=== PATIENT | female | born 1960 | race Caucasian/White ===

== ENCOUNTER → 2020-10-06 15:00 | Outpatient (BNVA) | payer OTHER, MEDICARE, SELFPAY | PROVIDERS: Family Provider Family Medicine; PCP Family Medicine; Visit Provider Family Medicine | DX: M54.40 Lumbago with sciatica, unspecified side (principal); G89.29 Other chronic pain; M17.0 Bilateral primary osteoarthritis of knee; I10 Essential (primary) hypertension; A60.00 Herpesviral infection of urogenital system, unspecified; K59.00 Constipation, unspecified; R13.10 Dysphagia, unspecified; K22.2 Esophageal obstruction; I16.0 Hypertensive urgency; E78.2 Mixed hyperlipidemia; F33.1 Major depressive disorder, recurrent, moderate; A60.04 Herpesviral vulvovaginitis; K59.03 Drug induced constipation; R79.89 Other specified abnormal findings of blood chemistry; R13.19 Other dysphagia; Z76.89 Persons encountering health services in other specified circumstances | CPT/HCPCS: 80053; 80061 ==

== ENCOUNTER → 2020-10-19 08:19 | Outpatient (BNVA) | payer OTHER, SELFPAY | PROVIDERS: Family Provider Family Medicine; PCP Family Medicine; Referring Provider Family Medicine; Visit Provider Anesthesiology Pain Medicine | DX: M25.561 Pain in right knee (principal); M25.562 Pain in left knee; M47.816 Spondylosis without myelopathy or radiculopathy, lumbar region; M47.814 Spondylosis without myelopathy or radiculopathy, thoracic region; M62.830 Muscle spasm of back | CPT/HCPCS: 99205 ==

== ENCOUNTER 2020-10-19 09:53 | Outpatient (CLI) | payer OTHER, SELFPAY ==
--- NOTE | 2020-10-19 10:04 | XR_ITS ---
WS: [id number] LUMBAR SPINE TECHNIQUE: 3 views of the lumbar spine CLINICAL INFORMATION: M54.40 - Lumbago with sciatica, unspecified side COMPARISON: None. FINDINGS:: Residual barium in the colon obscures the pelvis in the AP view and lower lumbar spine on the lateral view. Five [id number] lumbar vertebral bodies. Mild lumbar curve. Osteopenia. No acute appearing compr ession fractures. Disc space narrowing worse at L3-L4 L4-L5 and L5-S1. L5 appears partially sacralize d. Grade 1 anterolisthesis L3 on L4 measuring 2 mm. XR/XR lumbar spine 2-3V* [id number] IMPRESSION: 1. Osteopenia with mild lumbar curve. 2. L5 appears partially sacralized. 3. 2 mm anterolisthesis L3 on L4. 4. Disc space narrowing worse at L3-L4 L4-L5 and L5-S1. 5. No acute appearing compression fractures. 6. Moderate facet arthropathy L5-S1.
--- NOTE | 2020-10-19 10:04 | XR_ITS ---
WS: [id number] THORACIC SPINE TECHNIQUE: 3 views of the thoracic spine CLINICAL INFORMATION: M54.40 - Lumbago with sciatica, unspecified side COMPARISON: April 09, 2018 FINDINGS: Osteopenia. Moderate thoracic kyphosis. Chronic appearing anterior wedging in the mid thoracic spine has progressed since 2018. No definite acute compression fractures. Mild disc space narrowing in the mid thoracic spine is also progressed compared to previous. Mild anterior hypertrophic changes. XR/XR thoracic spine 3V* [id number] IMPRESSION: 1. Moderate thoracic kyphosis with chronic appearing anterior wedging mid thor acic spine has progressed since 2018. 2. Progressed disc space narrowing in the mid thoracic spine. 3. Osteopenia. 4. Findings can be further evaluated with MRI or CT if concern for acute compr ession.
== END 2020-10-19 09:54 | disposition home or self-care (01) ==
LOC: RADWPI 09:57
PROVIDERS: PCP Family Medicine; Visit Provider Family Medicine
DX: M54.40 Lumbago with sciatica, unspecified side (principal); M40.294 Other kyphosis, thoracic region; M85.88 Other specified disorders of bone density and structure, other site; M47.817 Spondylosis without myelopathy or radiculopathy, lumbosacral region
CPT/HCPCS: 72072; 72100

== ENCOUNTER → 2020-11-08 14:04 | Outpatient (BNVA) | payer OTHER, SELFPAY | PROVIDERS: PCP Family Medicine; Visit Provider Anesthesiology Pain Medicine | DX: M79.18 Myalgia, other site (principal); M47.816 Spondylosis without myelopathy or radiculopathy, lumbar region; M54.14 Radiculopathy, thoracic region; M47.814 Spondylosis without myelopathy or radiculopathy, thoracic region; M25.561 Pain in right knee; M25.562 Pain in left knee | CPT/HCPCS: 20553; 99215; J1030; J3490 ==

== ENCOUNTER → 2020-11-25 09:23 | Outpatient (BNVA) | payer OTHER, SELFPAY | PROVIDERS: PCP Family Medicine; Visit Provider Anesthesiology Pain Medicine | DX: M54.42 Lumbago with sciatica, left side (principal); M54.6 Pain in thoracic spine; M47.816 Spondylosis without myelopathy or radiculopathy, lumbar region; M54.14 Radiculopathy, thoracic region; M25.569 Pain in unspecified knee; M62.830 Muscle spasm of back; M47.814 Spondylosis without myelopathy or radiculopathy, thoracic region; Z79.891 Long term (current) use of opiate analgesic | CPT/HCPCS: 99214 ==

== ENCOUNTER → 2020-12-23 10:42 | Outpatient (BNVA) | payer OTHER, SELFPAY | PROVIDERS: PCP Family Medicine; Visit Provider Anesthesiology Pain Medicine | DX: M47.816 Spondylosis without myelopathy or radiculopathy, lumbar region (principal); M54.14 Radiculopathy, thoracic region; M47.814 Spondylosis without myelopathy or radiculopathy, thoracic region; M25.561 Pain in right knee; M25.562 Pain in left knee; M62.830 Muscle spasm of back; Z79.891 Long term (current) use of opiate analgesic | CPT/HCPCS: 99214 ==

== ENCOUNTER → 2021-01-03 11:45 | Outpatient (BNVA) | payer MEDICARE, SELFPAY | PROVIDERS: PCP Family Medicine; Referring Provider Family Medicine; Visit Provider Orthopaedic Surgery | DX: M25.561 Pain in right knee (principal); M25.562 Pain in left knee | CPT/HCPCS: 73560; 73565 ==

== ENCOUNTER → 2021-01-20 11:29 | Outpatient (BNVA) | payer MEDICARE, SELFPAY | PROVIDERS: PCP Family Medicine; Visit Provider Anesthesiology Pain Medicine | DX: M47.814 Spondylosis without myelopathy or radiculopathy, thoracic region (principal); M47.816 Spondylosis without myelopathy or radiculopathy, lumbar region; M54.14 Radiculopathy, thoracic region; M54.6 Pain in thoracic spine; M25.561 Pain in right knee; M25.562 Pain in left knee; M62.830 Muscle spasm of back; Z79.891 Long term (current) use of opiate analgesic | CPT/HCPCS: 99214 ==

== ENCOUNTER → 2021-02-07 08:51 | Outpatient (BNVA) | payer MEDICARE, SELFPAY | PROVIDERS: PCP Family Medicine; Visit Provider Orthopaedic Surgery | DX: Z01.812 Encounter for preprocedural laboratory examination (principal); Z20.822 Contact with and (suspected) exposure to COVID-19 | CPT/HCPCS: 87635 ==

== ENCOUNTER 2021-02-13 13:34 | Observation (INO) | payer MEDICARE, SELFPAY ==
[2021-01-30 08:45] VITALS: BMI 27.1
--- NOTE | 2021-01-30 09:30 | ANES.PREANE2 ---
Pre-Anesthetic Assessment Pre-Anesthetic Assessment: Height/Weight: Height 1.55 m Weight 65.317 kg Preop Diagnosis: Osteoarthritis Left knee Proposed Procedure: Operation Date: 02/13/21 09:35 Proposed Procedures p Total Knee Arthroplasty 48925 M17.12(Left) - Sal Reinoso MD Was Beta Lorin taken within 24 hours: N/A Was Clonidine taken within 24 hours: N/A Social: Social History: No alcohol and No tobacco Exam: Pre-Anes Outpt Exam: alert, oriented x 3, clear to auscultation bilaterally and regular rate & rhythm Airway: Submandibular: WNL Cervical ROM: WNL MP: 2 Dentition: Full CV/HEM: CV/HEM: HTN Musc/skel: Musc/skel: Lower Back Pain and OA/DJD Neuropsych: Neuropsych: Depression Anesthetic Plan: ASA status: 3 Anesthesia: Regional (specify below) (SAB/adductor blk) Risk of > 500 ml blood loss (7ml/kg in children): No PFSH Anesthesia PFSH: Medical History Chronic bilateral low back pain with sciatica Constipation Herpes genitalis Hyperlipemia Hypertension Major depression Surgical History H/O tubal ligation Family History Mother Chronic kidney disease (CKD) Stroke Father Stroke COPD (chronic obstructive pulmonary disease) Social History Smoking and tobacco status: former smoker Alcohol intake: current Alcohol intake frequency: 0-2 Drinks per Day Alcohol type: beer History of recent travel: No Data Anesthesia Cardiac Studies: No Data to Display
[2021-02-13] VITALS (19 sets, daily range): BP systolic 104–134; BP diastolic 62–90; PULSE 69–95; RESP 16–18; TEMP 36.2–37; O2SAT 92–100
[2021-02-13] MEDS: sodium chloride 0.9% 1,000 ML 30 ML IV (08:24)
[2021-02-13] MEDS: acetaminophen 500 mg Tablet 1000 MG PO ×3 (08:24→20:56)
[2021-02-13] MEDS: oxyCODONE 20 mg ER (12 HR) Tablet PO (08:25)
[2021-02-13] MEDS: CELEcoxib 200 mg Capsule 400 MG PO (08:25)
[2021-02-13] MEDS: gabapentin 300 mg Capsule PO ×2 (08:26→18:20)
--- NOTE | 2021-02-13 09:17 | P.ANESUD_ITS ---
Pre-Anesthetic Update Pre-Anesthetic Assessment: Date of Surgery/Procedure: 02/13/21 Preop Geri gnosis: Osteoarthritis Left knee Proposed Procedure: Operation Date: 02/13/21 09:35 Proposed Procedures p Total Knee Arthroplasty 06340 M17.12(Left) - Sal Reinoso MD Any changes to Pre-Anesthetic Assessment?: No Last Intake: Intake Last Liquid Date 02/12/21 Last Liquid Time 23:30 Last Solid Date 02/12/21 Last Solid Time 23:30 Vitals: Temperature 97.6 F 02/13/21 08:04 Temperature Source Temporal Artery S can 02/13/21 08:04 Pulse Rate 69 02/13/21 08:04 Respiratory Rate 18 02/13/21 08:25 Respiratory Effort 02/13/21 08:25 Respiratory Depth Normal 02/13/21 08:25 Respiratory Patter n 02/13/21 08:25 Blood Pressure 134/90 02/13/21 08:04 Blood Pressure Daniela n 104 02/13/21 08:04 Pulse Oximetry 100 02/13/21 08:25 Oxygen Delivery Me thod 02/13/21 08:04 Exam: Pre-Anes Outpt Exam: alert, oriented x 3, clear to auscultation bilaterally and regular rate & rhythm Cardiac Studies: No Data to Display
--- NOTE | 2021-02-13 10:14 | P.HP_ITS ---
Same Day Surgery H&P Indication for Procedure/HPI DATE OF PROCEDURE: February 13, 2021 CHIEF COMPLAINT/INDICATIONFOR SURGICAL PROCEDURE: Osteoarthritis right knee here for left total knee arthroplasty PREOP DIAGNOSIS: Osteoarthritis Left knee PLANNED PROCEDRUE: Operation Date: 02/13/21 09:35 Proposed Procedures p Total Knee Arthroplasty 49033 M17.12(Left) - Sal Reinoso MD Medications/Allergies* Home Medications Medication Instructions Recorded Confirmed Type milk thistle seed extract 175 mg 175 mg PO ONCE cap 01/20/21 02/13/21 History capsule Allergies/Adverse Reactions Allergy/AdvReac Type Severity Reaction Status Date / Time Sulfa (Sulfonamide Allergy hives Verified 02/09/21 08:14 Antibiotics) Current Medications: Generic Name Dose Route Start Last Admin Trade Name Freq PRN Reason Stop Dose Admin Sodium Chloride 1,000 mls @ 30 mls/hr 02/13/21 08:00 02/13/21 08:24 Sodium Chloride 0.9% IV 02/14/21 07:59 30 mls/hr .Q24H [facility] Administration Pertinent History/Comorbid Conditions* Medical History (Updated 11/08/20 @ 14:51 by Macario Berumen MD) Chronic bilateral low back pain with sciatica Constipation Herpes genitalis Hyperlipemia Hypertension Major depression Surgical History (Updated 10/06/20 @ 11:45 by Rachel Alonso MD) H/O tubal ligation Family History (Updated 10/19/20 @ 08:58 by Melissa Montoya LPN) Mother Chronic kidney disease (CKD) Mother COPD (chronic obstructive pulmonary disease) Father Stroke Mother Father Social History Smoking and tobacco status: former smoker Alcohol intake: current Alcohol intake frequency: 0-2 Drinks per Day Alcohol type: beer History of recent travel: No Pertinent Exam Findings alert, oriented x 3, clear to auscultation bilaterally, regular rate & rhythm and operative site marked Recommendations Surgery/Procedure today Coding Level of Care Code Acute 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
[2021-02-13] MEDS: EPINEPHrine 1 mg/mL INJ (11:35)
[2021-02-13] MEDS: tranexamic acid 1,000 mg/10mL SDV 1000 MG IRRIGATION (11:35)
[2021-02-13] MEDS: ketorolac 30 mg/mL INJ (11:36)
--- NOTE | 2021-02-13 12:39 | PM.OP ---
Operative Report Date of procedure: February 13, 2021 Pre-op Diagnosis: Osteoarthritis Left knee Post-op diagnosis: same Post-op Findings: Same Procedure Done: Left total knee arthroplasty Pathology: none sent Surgeon: Sal Reinoso Anesthesia: Nerve Block (Spinal, abductor canal block) Estimated blood loss (mL): 200 Complications: None Findings: Patient had eburnated bone over the medial femoral condyle and medial tibial plateau. She had no significant chondromalacia in the lateral or patellofemoral Condition: stable Disposition: PACU Procedure: The patient was taken to the operating room. Patient was given 1 g of tranexamic acid . The above anesthesia provided by the anesthesia service. A timeout was performed. The patient was prepped and draped in the usual fashion with the lower extremity exposed. A anterior incision was made, midline, from a point proximal to the patella to the distal tibial tubercle. The knee was entered through a medial parapatellar approach. The patella could be displaced laterally and the knee flexed. The patellar fat pad was resected to provide better visibility. Retractors were placed medially and laterally adjacent to the tibial plateau. The femoral canal was drilled in line with the longitudinal axis of the femur. Intramedullary femoral guide for used to make a distal femoral cut in 5 degrees of valgus, resecting 8 mm from the more prominent condyle. Next the extra medullary tibial guide was placed in alignment with the longitudinal axis of the tibia. The cutting guides were set to remove just over 9 mm from the high tibial plateau. The proximal tibia was then cut. The femoral measuring guide was then placed over the distal femur. Rotation was verified checking the relationship of the guide to the condyle and the trochlear groove. The femur was measured and cut for the desired femoral component. The desired tibial baseplate was then chosen. A trial reduction with the femur tibial baseplate and polyethylene was done, assuring that the knee was stable throughout full motion. Ligament balancing involve nothing more than a release of the deep medial collateral ligament.The tibia was prepared for the tibial baseplate. The patella revealed minimal wear and tracked well with the trial components. Decision was made to not resurface the patella. All surfaces were cleaned with pulsatile lavage. The femur and tibia were then press-fit into place. The posterior capsule and collateral ligaments were then injected with a solution of 100 mL of 0.2% ropivacaine, 1 mL of a 1:1000 epinephrine solution, and 30 mg of Toradol. Final polyethylene component was then snapped into place into the tibia. 2 grams of tranexamic acid were applied to the wound. The tourniquet was deflated. The tranxanemic acid was left contact with the knee for 5 minutes before the knee was irrigated with saline. The extensor retinaculum was closed with a running 1 Stratafix.. The subcutaneous tissues were closed with 2-0 Vicryl and the skin was closed with a running 3-0 Stratafix. The wound was covered with a Dermabond Prinio dressing. It was covered with 4xrs and a compressive Tubigauae was applied. The patient was taken to recovery room in stable condition. [employer] total knee arthroplasty components were used includin) Size 2 Triathalon cruciate retaining femoral component 2) Size two Tritanium tibial component 3) Size 2/eleven mm thickness CR tibial bearing insert
--- NOTE | 2021-02-13 12:49 | XRR_ITS ---
PROCEDURE INFORMATION: Exam: XR Left Knee Exam date and time: 02/13/2021 1:00 PM Age: 60 years old Clinical indication: Device placement; Joint replacement hardware; Prior surgery; Surgery date: Post-operative (0-2 days); Surgery type: Left total knee arthroplasty TECHNIQUE: Imaging protocol: XR Left knee. Views: 1 or 2 views. COMPARISON: CR XR knees AP WB w BI lmt ORTH 01/03/2021 11:52 AM FINDINGS: Bones/joints: Postoperative changes associated with recent total knee arthroplasty. No evidence of hardware complication. No radiographic evidence of acute fracture or dislocation. Alignment anatomic. Moderate effusion with associated intra-articular gas, likely postsurgical in nature. Soft tissues: Soft tissue swelling and gas, consistent with recent surgery. XR/XR knee LT 1-2V [id number] IMPRESSION: Postoperative changes associated with recent total knee arthroplasty.
--- NOTE | 2021-02-13 12:50 | P.PCN_ITS ---
PACU note PACU note: VSS, Good respiratory effort, report to SHREDDING SPECIALIST Post-Anesthesia Exam: awake
--- NOTE | 2021-02-13 12:50 | PM.PACU ---
PACU note PACU note: VSS, Good respiratory effort, report to UG DESIGNER Post-Anesthesia Exam: awake
--- NOTE | 2021-02-13 13:04 | ANES.PROC ---
Anesthesia Procedures Procedure/Date: 02/13/21 Nerve Block ^: Nerve Block 1: Main Anesthesia: general anesthesia Time Out Performed: Yes Consent: requested by attending/covering physician, from patient, risks and benefits reviewed and patient agrees to proceed Nerve block location: adductor canal (left) Anesthesia monitors applied: pulse oximetry, EKG, BP cuff and oxygen Nerve block position: supine Anesthetic Used: ropivicaine 0.5% Amount of anesthesia used (mL): 20 Ultrasound used to: recognize landmarks Nerve Stimulator Used?: No Interscalene/Femoral BLK: 4 stimuplex 21 g needle used for position and inplane approach Injection: neg aspiration of heme Patient Tolerated Procedure: well Complications: none
[2021-02-13] MEDS: morphine 4 mg/mL SDV 1 mL 2 MG IVP ×3 (14:27→21:17)
[2021-02-13] MEDS: sodium chloride 0.9% 1,000 ML 100 ML IV (14:32)
[2021-02-13] MEDS: methocarbamol 500 mg Tablet PO ×2 (14:53→20:56)
--- NOTE | 2021-02-13 14:55 | ANE.PACU2 ---
Inpatient post-anesthesia follow up: Airway intact: Yes Vital signs: Temperature 97.3 F Pulse Rate 78 Respiratory Rate 16 Blood Pressure 104/68 Pulse Oximetry 97 Oxygen Delivery Me thod Nasal Cannula Oxygen Flow Rate 1 Fraction of Inspir ed Oxygen Hydration adequate: Yes Nausea and vomiting: No Pain level: 2 Mental status: Baseline
[2021-02-13] MEDS: sennosides-docusate Tablet 2 TAB PO (18:20)
[2021-02-13] MEDS: mupirocin oint 22 gm 1 APPLIC TOPICAL (18:20)
[2021-02-13] MEDS: calcium carbonate 500 mg Chew Tablet 1000 MG PO (20:56)
[2021-02-14 00:24] VITALS: BP 121/80; PULSE 68; RESP 18; TEMP 36.4; O2SAT 96
[2021-02-14] MEDS: sodium chloride 0.9% 1,000 ML 100 ML IV (01:49)
--- NOTE | 2021-02-14 02:36 | PC.NURSE ---
Patient was in pain I was checking her blood pressure prior to giving morphine and it was 72/45 did a manual and it was 80/54. I called Ortho instrumentation engineering technician who said to consult the hospitalist. Hospitalist said to give 500 bolus of NS. Will recheck BP after bolus.
[2021-02-14] MEDS: sodium chloride 0.9% 500 ML IV (03:15)
[2021-02-14 03:35] VITALS: BP 98/62; PULSE 59; RESP 16; TEMP 36.9; O2SAT 93
[2021-02-14] MEDS: acetaminophen 500 mg Tablet 1000 MG PO ×2 (06:15→13:37)
[2021-02-14 06:24] LABS: Hemoglobin 10.2 g/dL (11.5-15.3)
[2021-02-14] MEDS: morphine 4 mg/mL SDV 1 mL 2 MG IVP (06:30)
[2021-02-14] MEDS: amlodipine 10 mg Tablet PO (09:11)
[2021-02-14] MEDS: aspirin 325 mg EC Tablet PO (09:11)
[2021-02-14] MEDS: atorvastatin 40 mg Tablet PO (09:11)
[2021-02-14] MEDS: hydroCHLOROthiazide 25 mg Tablet PO (09:12)
[2021-02-14] MEDS: lisinopril 20 mg Tablet PO (09:12)
[2021-02-14] MEDS: gabapentin 300 mg Capsule PO (09:12)
[2021-02-14] MEDS: venlafaxine ER (24HR) 75 mg Capsule PO (09:13)
[2021-02-14] MEDS: mupirocin oint 22 gm 1 APPLIC TOPICAL (09:13)
[2021-02-14] MEDS: sennosides-docusate Tablet 2 TAB PO (09:13)
[2021-02-14] MEDS: methocarbamol 500 mg Tablet PO (09:13)
--- NOTE | 2021-02-14 09:32 | PC.CHAP ---
Pastoral Care Encounter/Spiritual Assessment Type of Contact [] Declined supervisor keymodule assembly visit [] Patient/Family/Request visit [] Outpatient visit [] Follow-up visit [] Physician referral [] Code/Alert [x] Routine visit [] Staff referral [] Actively dying [] Patient sleeping [] Family support [] [] Out of room [] Palliative care [] [] Receiving care in room [] Pre-surgical visit [] Trauma [] Long length of stay [] ICU visit [] Other: Relational/Emotional Strength [x] Patient feels connected with others/family/visitors/staff [] Distress [] Loneliness/isolation [] Abandonment Spirituality of Patient [] Person of [place] [] Attends Church of their [place] [] Believes in Prayer [] Reads Bible or Adventist materials [] There are Spiritual issues to be addressed Ski Instructor Interventions [] Prayer [] Active listening [] Non-anxious presence [] Spiritual/emotional support [] Crisis/trauma care [] Spiritual counseling [] Bereavement support [] Provided bereavement packet [] Provided Bible/devotional materials [] Provided toy/stuffed animal, coloring book to patient or family member [] Provided Communion [] Anointing/[place] [] Salvation [x] Completed spiritual assessment [] Other: Impact on Illness or Injury [] Angry [] Fearful [] Anxious [] Often cries [] Exhaustion [] Unable to work [] Unable to attend congregational [] Unable to walk/stand [] Unable to read [] Unable to drive [] Unable to eat/drink [] Unable to sleep [] Unable to be with family [] Patient intubated [] Other: Summary patient of another mar[place] Time spent with patient
[2021-02-14 11:24] VITALS: RESP 16; O2SAT 99
[2021-02-14] MEDS: oxyCODONE 5 mg IR Tab/Cap PO ×2 (11:24→15:44)
--- NOTE | 2021-02-14 13:09 | P.DS_ITS ---
Discharge Providers Date of Admission: 02/13/21 13:34 Date of Discharge: February 14, 2021 Attending Provider at Admission: Sal Reinoso MD Attending Provider at Discharge: Sal Reinoso MD Primary Care Provider: Rachel Alonso MD Diagnoses at Discharge Discharge Diagnosis (1) Status post left knee replacement: Status: Acute (2) Osteoarthritis of left knee: Status: Resolved Reason for Visit Reason for Visit: total knee Hospital Course Hospital Course Ms. Matson is a 60-year-old left total knee arthroplasty. She did well and by the first postoperative day her pain was under control. She is managed with aspirin and sequential compression dressings for DVT prophylaxis. She made excellent progress with therapy and by the first postoperative day was thought stable for discharge. Physical Exam Narrative: EXAM NARRATIVE: On the day of discharge his knee incision was clean. They had no drainage. There is minimal swelling in the thigh and knee and the calf. No distal neurovascular deficits were noted Urinary Catheter Management^: Rodriguez: Cath Placed During This Visit: yes, but has since been removed by the nurse Reason for Continuing Indwelling Catheter: Perioperative Use in Selected Surgeries Urinary Catheter Date of Insertion: 02/13/21 Urinary Catheter Time of Insertion: 10:45 Date Urinary Catheter Removed: 02/14/21 Time Urinary Catheter Discontinued: 06:44 Discharge Data Data Completed and Pending: Completed Studies During Hospitalization Category Date Time Status XR knee LT 1-2V 7 [id number] Routine Exams 02/13/21 12:49 Completed Labs from last 24 hours 02/14/21 05:20 Hgb 10.2 L Vitals: Last Vital Signs Temp 98.5 F 02/14/21 03:35 Pulse 59 L 02/14/21 03:35 Resp 16 02/14/21 11:24 BP 98/62 02/14/21 03:35 Pulse Ox 99 02/14/21 11:24 Discharge Plan Discharge Patient Disposition: Home Condition: Stable Prescriptions: New oxycodone 5 mg Tablet 5 mg PO Q4H PRN (Reason: Moderate Pain) 40 Days RF: 0 acetaminophen 500 mg Tablet 1,000 mg PO Q8H 1 Days Qty: 6 RF: 0 aspirin 325 mg Tablet,Delayed Release (Dr/Ec) 325 mg PO DAILY 30 Days RF: 0 gabapentin 300 mg Capsule 300 mg PO BID 7 Days Qty: 14 RF: 0 Continued milk thistle seed extract 175 mg capsule 175 mg PO ONCE RF: 0 acyclovir 5 % ointment 1 applic topical 6XD 7 Days Qty: 5 RF: 0 amlodipine 10 mg tablet 10 mg PO DAILY 90 Days Qty: 90 RF: 1 lisinopril-hydrochlorothiazide 20-25 mg tablet 1 tab PO DAILY 90 Days Qty: 90 RF: 1 atorvastatin 40 mg tablet 40 mg PO DAILY 90 Days Qty: 90 RF: 1 diclofenac sodium [Arthritis Pain (diclofenac)] 1 % gel 4 g topical QID Qty: 100 RF: 5 polyethylene glycol 3350 17 gram/dose powder 17 g PO DAILY PRN (Reason: constipation) Qty: 850 RF: 5 venlafaxine 75 mg capsule,extended release 24hr 75 mg PO DAILY 90 Days Qty: 90 RF: 0 methocarbamol 500 mg tablet 500 mg PO TID 30 Days Qty: 90 RF: 0 tizanidine 4 mg tablet See Rx Instructions .ROUTE .COMPLEX Qty: 30 RF: 0 mupirocin 2 % ointment 1 applic topical BID Qty: 22 RF: 0 Discontinued acetaminophen-codeine 300-30 mg tablet 1 tab PO QID PRN (Reason: pain) 30 Days Qty: 120 RF: 0 Discharge Orders: Discharge Order (Routine); Ordered 02/14/21 Ordered By: Sal Reinoso Other Ambulatory Orders: DME: Walker (Order) Location: None Selected Ordered By: Sal Reinoso Referrals: [facility] [Outside] Sal Reinoso MD [Physician] - 2 weeks Discharge Diet: Advance as tolerated Discharge Activity: Limit activity as instructed Patient Instructions: Opioid Safety Activity Restrictions/Additional Instructions: Okay to shower Keep Tubigauze sleeve in place for swelling. Okay to remove for hygiene. Apply FirstIce up to 20 min/hr for pain and swelling Take Neurontin twice a day for 7 days. Take Tylenol 500mg (1-2 tabs) as needed 3 times a day for mild pain take oxycodone for breakthrough pain. Exercises per physical therapy. May weight-bear as tolerated on total knee arthroplasty Discharge Attestations Time Spent in Discharge Care*: other Quality Metrics Clinical Quality Measures During this hospital stay, did patient experience: None Coding Level of Care Code Acute g [facility] note Diagnoses Status post left knee replacement Z96.652 Osteoarthritis of left knee M17.12
[2021-02-14 15:44] VITALS: RESP 22; O2SAT 99
[2021-02-14 15:49] VITALS: BP 110/76; PULSE 90; RESP 18; TEMP 36.6; O2SAT 99
== END 2021-02-14 15:50 | disposition home or self-care (01) ==
LOC: MEDSURG 13:34
PROVIDERS: Admitting Provider Orthopaedic Surgery; PCP Family Medicine; Visit Provider Orthopaedic Surgery
PROC: (CPT 27447; principal; 2021-02-13 09:15)
DX: M17.12 Unilateral primary osteoarthritis, left knee (principal); I10 Essential (primary) hypertension; F32.9 Major depressive disorder, single episode, unspecified; M19.90 Unspecified osteoarthritis, unspecified site; Z87.891 Personal history of nicotine dependence
CPT/HCPCS: 27447; 36415; 51702; 64447; 73560; 76942; 85018; 97110; 97116; 97161; 97165; 97530; C1776; G0378; J0171; J0690; J1580; J1885; J2250; J2270; J2704; J2795; J3010; J7030; J7040

== ENCOUNTER → 2021-03-02 10:12 | Outpatient (BNVA) | payer MEDICARE, SELFPAY | PROVIDERS: PCP Family Medicine; Visit Provider Anesthesiology Pain Medicine | DX: M47.814 Spondylosis without myelopathy or radiculopathy, thoracic region (principal); M47.816 Spondylosis without myelopathy or radiculopathy, lumbar region; M54.14 Radiculopathy, thoracic region; M25.561 Pain in right knee; M25.562 Pain in left knee; M62.830 Muscle spasm of back; Z79.891 Long term (current) use of opiate analgesic | CPT/HCPCS: 99214 ==

== ENCOUNTER 2021-03-07 06:00 | Outpatient (RCR) | payer MEDICARE, SELFPAY | END 2021-03-29 23:59 | disposition home or self-care (01) | LOC: MPT 06:00 | PROVIDERS: PCP Family Medicine; Referring Provider Orthopaedic Surgery; Visit Provider Orthopaedic Surgery | DX: Z47.1 Aftercare following joint replacement surgery (principal); Z96.652 Presence of left artificial knee joint | CPT/HCPCS: 97110; 97140; 97161; 97530 ==

== ENCOUNTER 2021-03-30 06:00 | Outpatient (RCR) | payer MEDICARE, SELFPAY | END 2021-04-29 23:59 | disposition home or self-care (01) | LOC: MPT 06:00 | PROVIDERS: PCP Family Medicine; Referring Provider Orthopaedic Surgery; Visit Provider Orthopaedic Surgery | DX: Z47.1 Aftercare following joint replacement surgery (principal); Z96.652 Presence of left artificial knee joint | CPT/HCPCS: 97110; 97116; 97140; 97530; 99214 ==

== ENCOUNTER → 2021-03-30 09:06 | Outpatient (BNVA) | payer MEDICARE, SELFPAY | PROVIDERS: PCP Family Medicine; Visit Provider Anesthesiology Pain Medicine | DX: G89.29 Other chronic pain (principal); M47.816 Spondylosis without myelopathy or radiculopathy, lumbar region; M47.814 Spondylosis without myelopathy or radiculopathy, thoracic region; M54.14 Radiculopathy, thoracic region; M25.561 Pain in right knee; M25.562 Pain in left knee; M62.830 Muscle spasm of back; Z79.891 Long term (current) use of opiate analgesic | CPT/HCPCS: 99214 ==

== ENCOUNTER → 2021-04-24 09:34 | Outpatient (BNVA) | payer MEDICARE, SELFPAY | PROVIDERS: PCP Family Medicine; Visit Provider Anesthesiology Pain Medicine | DX: G89.29 Other chronic pain (principal); M79.18 Myalgia, other site; M47.816 Spondylosis without myelopathy or radiculopathy, lumbar region; M54.14 Radiculopathy, thoracic region; Z79.891 Long term (current) use of opiate analgesic | CPT/HCPCS: 20553; 99214; J1030; J3490 ==

== ENCOUNTER → 2021-05-22 09:11 | Outpatient (BNVA) | payer MEDICARE, SELFPAY | PROVIDERS: PCP Family Medicine; Visit Provider Anesthesiology Pain Medicine | DX: G89.29 Other chronic pain (principal); M47.816 Spondylosis without myelopathy or radiculopathy, lumbar region; M54.14 Radiculopathy, thoracic region; M47.814 Spondylosis without myelopathy or radiculopathy, thoracic region; M25.561 Pain in right knee; M25.562 Pain in left knee; M62.830 Muscle spasm of back; Z79.891 Long term (current) use of opiate analgesic | CPT/HCPCS: 99213 ==

== ENCOUNTER → 2021-06-12 09:41 | Outpatient (BNVA) | payer MEDICARE, SELFPAY | PROVIDERS: PCP Family Medicine; Visit Provider Family Medicine | DX: Z11.59 Encounter for screening for other viral diseases (principal); L29.8 Other pruritus; F33.1 Major depressive disorder, recurrent, moderate; I10 Essential (primary) hypertension; Z11.4 Encounter for screening for human immunodeficiency virus [HIV] | CPT/HCPCS: 80053; 85025; 86705; 86706; 86803; 87340; 87806 ==

== ENCOUNTER → 2021-06-19 09:00 | Outpatient (BNVA) | payer MEDICARE, SELFPAY | PROVIDERS: PCP Family Medicine; Visit Provider Anesthesiology Pain Medicine | DX: G89.29 Other chronic pain (principal); M47.816 Spondylosis without myelopathy or radiculopathy, lumbar region; M54.14 Radiculopathy, thoracic region; M47.814 Spondylosis without myelopathy or radiculopathy, thoracic region; M25.561 Pain in right knee; M25.562 Pain in left knee; M62.830 Muscle spasm of back; Z79.891 Long term (current) use of opiate analgesic | CPT/HCPCS: 99214 ==

== ENCOUNTER → 2021-07-17 09:14 | Outpatient (BNVA) | payer MEDICARE, SELFPAY | PROVIDERS: PCP Family Medicine; Visit Provider Anesthesiology Pain Medicine | DX: M79.18 Myalgia, other site (principal); M25.561 Pain in right knee; M25.562 Pain in left knee; M47.816 Spondylosis without myelopathy or radiculopathy, lumbar region; M54.14 Radiculopathy, thoracic region; M47.814 Spondylosis without myelopathy or radiculopathy, thoracic region; Z79.891 Long term (current) use of opiate analgesic | CPT/HCPCS: 20553; 99214 ==

== ENCOUNTER → 2021-08-02 12:56 | Outpatient (BNVA) | payer MEDICARE, SELFPAY | PROVIDERS: PCP Family Medicine; Visit Provider Anesthesiology Pain Medicine | DX: M47.816 Spondylosis without myelopathy or radiculopathy, lumbar region (principal); M54.14 Radiculopathy, thoracic region | CPT/HCPCS: 64493; 64494; 64495; J3490 ==

== ENCOUNTER → 2021-08-16 10:24 | Outpatient (BNVA) | payer MEDICARE, SELFPAY | PROVIDERS: PCP Family Medicine; Visit Provider Anesthesiology Pain Medicine | DX: G89.29 Other chronic pain (principal); M25.561 Pain in right knee; M25.562 Pain in left knee; M47.816 Spondylosis without myelopathy or radiculopathy, lumbar region; M47.814 Spondylosis without myelopathy or radiculopathy, thoracic region; M54.14 Radiculopathy, thoracic region; M62.830 Muscle spasm of back | CPT/HCPCS: 99214 ==

== ENCOUNTER → 2021-09-04 12:43 | Outpatient (BNVA) | payer MEDICARE, SELFPAY | PROVIDERS: PCP Family Medicine; Visit Provider Anesthesiology Pain Medicine | DX: G89.29 Other chronic pain (principal); M47.816 Spondylosis without myelopathy or radiculopathy, lumbar region; M47.814 Spondylosis without myelopathy or radiculopathy, thoracic region; M54.14 Radiculopathy, thoracic region; M25.561 Pain in right knee; M25.562 Pain in left knee; M62.830 Muscle spasm of back | CPT/HCPCS: 64635; 64636; 99213; 99214; J1030 ==

== ENCOUNTER → 2021-10-02 09:12 | Outpatient (BNVA) | payer MEDICARE, SELFPAY | PROVIDERS: PCP Family Medicine; Visit Provider Anesthesiology Pain Medicine | DX: G89.29 Other chronic pain (principal); M79.18 Myalgia, other site; M47.816 Spondylosis without myelopathy or radiculopathy, lumbar region; M54.14 Radiculopathy, thoracic region; M47.814 Spondylosis without myelopathy or radiculopathy, thoracic region; M25.562 Pain in left knee; M25.561 Pain in right knee | CPT/HCPCS: 20553; 99214 ==

== ENCOUNTER → 2021-10-16 13:19 | Outpatient (BNVA) | payer MEDICARE, SELFPAY | PROVIDERS: PCP Family Medicine; Visit Provider Anesthesiology Pain Medicine | DX: G89.29 Other chronic pain (principal); M47.816 Spondylosis without myelopathy or radiculopathy, lumbar region | CPT/HCPCS: 64635; 64636; J1030 ==

== ENCOUNTER → 2021-10-30 09:15 | Outpatient (BNVA) | payer MEDICARE, SELFPAY | PROVIDERS: PCP Family Medicine; Visit Provider Anesthesiology Pain Medicine | DX: G89.29 Other chronic pain (principal); M47.816 Spondylosis without myelopathy or radiculopathy, lumbar region; M54.14 Radiculopathy, thoracic region; M47.814 Spondylosis without myelopathy or radiculopathy, thoracic region; M25.561 Pain in right knee; M25.562 Pain in left knee; M62.830 Muscle spasm of back; Z79.891 Long term (current) use of opiate analgesic | CPT/HCPCS: 99214; J1030; J3490 ==

== ENCOUNTER → 2021-11-28 11:08 | Outpatient (BNVA) | payer MEDICARE, SELFPAY | PROVIDERS: PCP Family Medicine; Visit Provider Anesthesiology Pain Medicine | DX: G89.29 Other chronic pain (principal); M47.816 Spondylosis without myelopathy or radiculopathy, lumbar region; M47.814 Spondylosis without myelopathy or radiculopathy, thoracic region; M54.14 Radiculopathy, thoracic region; M25.561 Pain in right knee; M25.562 Pain in left knee; M62.830 Muscle spasm of back; Z79.891 Long term (current) use of opiate analgesic | CPT/HCPCS: 99214 ==

== ENCOUNTER 2022-01-02 06:00 | Outpatient (RCR) | payer MEDICARE, SELFPAY | END 2022-01-25 17:16 | disposition home or self-care (01) | LOC: MPT 06:00 | PROVIDERS: PCP Family Medicine; Referring Provider Anesthesiology Pain Medicine; Visit Provider Anesthesiology Pain Medicine | DX: M54.50 Low back pain, unspecified (principal); G89.29 Other chronic pain | CPT/HCPCS: 97110; 97140; 97162; G0283 ==

== ENCOUNTER → 2022-01-08 11:02 | Outpatient (BNVA) | payer MEDICARE, SELFPAY | PROVIDERS: PCP Family Medicine; Visit Provider Anesthesiology Pain Medicine | DX: G89.29 Other chronic pain (principal); M47.814 Spondylosis without myelopathy or radiculopathy, thoracic region; M47.816 Spondylosis without myelopathy or radiculopathy, lumbar region; M54.14 Radiculopathy, thoracic region; M25.561 Pain in right knee; M25.562 Pain in left knee; M62.830 Muscle spasm of back; Z79.891 Long term (current) use of opiate analgesic | CPT/HCPCS: 72070; 99214 ==

== ENCOUNTER → 2022-01-22 15:10 | Outpatient (BNVA) | payer MEDICARE, SELFPAY | PROVIDERS: PCP Family Medicine; Visit Provider Family Medicine | DX: I11.0 Hypertensive heart disease with heart failure (principal); E78.2 Mixed hyperlipidemia; I50.9 Heart failure, unspecified | CPT/HCPCS: 80053; 80061; 83880; 85025 ==

== ENCOUNTER → 2022-02-05 10:08 | Outpatient (BNVA) | payer MEDICARE, SELFPAY | PROVIDERS: PCP Family Medicine; Visit Provider Anesthesiology Pain Medicine | DX: G89.29 Other chronic pain (principal); M47.816 Spondylosis without myelopathy or radiculopathy, lumbar region; M54.14 Radiculopathy, thoracic region; M47.814 Spondylosis without myelopathy or radiculopathy, thoracic region; M25.561 Pain in right knee; M25.562 Pain in left knee; M62.830 Muscle spasm of back; Z79.891 Long term (current) use of opiate analgesic | CPT/HCPCS: 99214 ==

== ENCOUNTER 2022-03-01 05:43 | Outpatient (CLI) | payer MEDICARE, SELFPAY ==
--- NOTE | 2022-03-01 06:15 | USCV_ITS ---
Komal Matson Age: 61 Gender: F : 1960 Exam Date: 03/01/2022 06:05 Ordering Phys: Rachel Alonso MD Technologist: OG Exam Location: [facility] [place] Indication: HYPERTENSION BP: 120 / 80 HR: 52 Rhythm: Sinus Technical Quality: Adequate MEASUREMENTS (Male / Female) Normal Values 2D ECHO LV Diastolic Diameter PLAX 4.4 cm 4.2 - 5.9 / 3.9 - 5.3 cm LV Systolic Diameter PLAX 2.7 cm IVS Diastolic Thickness 1.3 cm 0.6 - 1.0 / 0.6 - 0.9 cm IVS Systolic Thickness 2.0 cm LVPW Diastolic Thickness 1.3 cm 0.6 - 1.0 / 0.6 - 0.9 cm LVPW Systolic Thickness 1.7 cm LVOT Diameter 2.0 cm LV Ejection Fraction 2D Teich 70.3 % LV Ejection Fraction MOD 2C 63.5 % LV Ejection Fraction 2C AL 64.4 % LA Diameter 3.3 cm LA Width 3.9 cm LA Height 4.3 cm RA Width 3.5 cm RA Height 4.6 cm Aorta at Sinotubular Diameter 2.6 cm IVC Diameter 1.6 cm M-MODE Aortic Annulus Diameter 2.6 cm LA Ao Ratio MM 1.3 MV E Point Septal Separation 0.1 cm DOPPLER AV Peak Velocity 156.0 cm/s LVOT Peak Velocity 90.0 cm/s AV Area Cont Eq vti 1.8 cm squared AV Area Cont Eq pk 1.8 cm squared MV Peak Velocity 126.0 cm/s MV Area PHT 4.6 cm squared Mitral E to A Ratio 1.1 MV E' Velocity 47.5 cm/s Mitral E to MV E' Ratio 6.0 Mitral E to LV E' Lateral Ratio 7.6 Mitral E to LV E' Septal Ratio 5.0 TR Peak Velocity 252.3 cm/s TR Peak Gradient 25.5 mmHg TR Mean Velocity 190.8 cm/s TR Mean Gradient 15.4 mmHg TR Velocity Time Integral 80.3 cm Right Atrial Pressure 3.0 mmHg Pulmonary Artery Systolic Pressu 28.5 mmHg PV Peak Velocity 92.0 cm/s RV Acceleration Time 0.1 s RV Ejection Time 0.3 s RV AcT/ET 0.3 FINDINGS Left Ventricle Normal left ventricular size. LV systolic function is normal with EF of 55-60%. No regional wall motion abnormalities. Normal diastolic function Right Ventricle The right ventricle is normal in size and function. Right Atrium The right atrium is normal in size. Left Atrium The left atrium is normal in size. Mitral Valve Structurally normal mitral valve without significant stenosis or prolapse. There is mild mitral regurgitation. Aortic Valve Structurally normal aortic valve without significant sclerosis or stenosis. There is no aortic regurgitation. Tricuspid Valve Structurally normal tricuspid valve without significant stenosis. Mild tricuspid regurgitation. Pulmonary artery systolic pressure is normal. Pulmonic Valve Structurally normal pulmonic valve without significant stenosis. There is no pulmonic regurgitation. Pericardium Normal pericardium without effusion. Aorta Normal ascending aorta dimension. IVC CONCLUSIONS LV systolic function is normal with EF 55 to 60%. Normal diastolic function Mild mitral regurgitation. Mild tricuspid regurgitation. No comparison studies are available Juan C Ordaz MD (Electronically Signed) Final Date: 14 March 2022 11:27 S
== END 2022-03-01 05:44 | disposition home or self-care (01) ==
LOC: RAD 05:45
PROVIDERS: PCP Family Medicine; Visit Provider Family Medicine
DX: I11.0 Hypertensive heart disease with heart failure (principal); I50.9 Heart failure, unspecified
CPT/HCPCS: 93306

== ENCOUNTER → 2022-03-12 10:19 | Outpatient (BNVA) | payer MEDICARE, SELFPAY | PROVIDERS: PCP Family Medicine; Visit Provider Anesthesiology Pain Medicine | DX: G89.29 Other chronic pain (principal); M47.816 Spondylosis without myelopathy or radiculopathy, lumbar region; M54.14 Radiculopathy, thoracic region; M47.814 Spondylosis without myelopathy or radiculopathy, thoracic region; M25.561 Pain in right knee; M25.562 Pain in left knee; M62.830 Muscle spasm of back; Z79.891 Long term (current) use of opiate analgesic | CPT/HCPCS: 99214 ==

== ENCOUNTER → 2022-04-09 09:19 | Outpatient (BNVA) | payer MEDICARE, SELFPAY | PROVIDERS: PCP Family Medicine; Visit Provider Anesthesiology Pain Medicine | DX: G89.29 Other chronic pain (principal); M47.816 Spondylosis without myelopathy or radiculopathy, lumbar region; M54.14 Radiculopathy, thoracic region; M47.814 Spondylosis without myelopathy or radiculopathy, thoracic region; M25.561 Pain in right knee; M25.562 Pain in left knee; M62.830 Muscle spasm of back; Z79.891 Long term (current) use of opiate analgesic | CPT/HCPCS: 99214 ==

== ENCOUNTER → 2022-05-14 08:54 | Outpatient (BNVA) | payer MEDICARE, SELFPAY | PROVIDERS: PCP Family Medicine; Visit Provider Anesthesiology Pain Medicine | DX: G89.29 Other chronic pain (principal); M79.18 Myalgia, other site; M47.816 Spondylosis without myelopathy or radiculopathy, lumbar region; M54.14 Radiculopathy, thoracic region; M47.814 Spondylosis without myelopathy or radiculopathy, thoracic region; M25.561 Pain in right knee; M25.562 Pain in left knee; Z79.891 Long term (current) use of opiate analgesic | CPT/HCPCS: 20553; 99214; J1030 ==

== ENCOUNTER → 2022-06-11 09:51 | Outpatient (BNVA) | payer MEDICARE, SELFPAY | PROVIDERS: PCP Family Medicine; Visit Provider Anesthesiology Pain Medicine | DX: G89.29 Other chronic pain (principal); M47.816 Spondylosis without myelopathy or radiculopathy, lumbar region; M54.14 Radiculopathy, thoracic region; M54.2 Cervicalgia; M47.814 Spondylosis without myelopathy or radiculopathy, thoracic region; M62.830 Muscle spasm of back; M25.561 Pain in right knee; M25.562 Pain in left knee | CPT/HCPCS: 99214 ==

== ENCOUNTER → 2022-07-09 08:59 | Outpatient (BNVA) | payer MEDICARE, SELFPAY | PROVIDERS: PCP Family Medicine; Visit Provider Anesthesiology Pain Medicine | DX: G89.29 Other chronic pain (principal); M47.816 Spondylosis without myelopathy or radiculopathy, lumbar region; M54.14 Radiculopathy, thoracic region; M54.2 Cervicalgia; M47.814 Spondylosis without myelopathy or radiculopathy, thoracic region; M62.830 Muscle spasm of back; M25.561 Pain in right knee; M25.562 Pain in left knee; Z87.891 Personal history of nicotine dependence | CPT/HCPCS: 99213 ==

== ENCOUNTER → 2022-08-02 10:23 | Outpatient (BNVA) | payer MEDICARE, SELFPAY | PROVIDERS: PCP Family Medicine; Visit Provider Anesthesiology Pain Medicine | DX: G89.29 Other chronic pain (principal); M47.816 Spondylosis without myelopathy or radiculopathy, lumbar region; M54.14 Radiculopathy, thoracic region; M47.814 Spondylosis without myelopathy or radiculopathy, thoracic region; M54.2 Cervicalgia; M62.830 Muscle spasm of back; M25.561 Pain in right knee; M25.562 Pain in left knee; Z87.891 Personal history of nicotine dependence | CPT/HCPCS: 99213 ==

== ENCOUNTER → 2022-08-30 10:48 | Outpatient (BNVA) | payer MEDICARE, SELFPAY | PROVIDERS: PCP Family Medicine; Visit Provider Anesthesiology Pain Medicine | DX: G89.29 Other chronic pain (principal); M47.816 Spondylosis without myelopathy or radiculopathy, lumbar region; M54.14 Radiculopathy, thoracic region; M47.814 Spondylosis without myelopathy or radiculopathy, thoracic region; M25.561 Pain in right knee; M25.562 Pain in left knee; M62.830 Muscle spasm of back; Z87.891 Personal history of nicotine dependence; M54.12 Radiculopathy, cervical region | CPT/HCPCS: 72040; 99214 ==

== ENCOUNTER → 2022-09-10 13:28 | Outpatient (BNVA) | payer MEDICARE, SELFPAY | PROVIDERS: PCP Family Medicine; Visit Provider Family Medicine | DX: I10 Essential (primary) hypertension (principal) | CPT/HCPCS: 80053 ==

== ENCOUNTER → 2022-10-02 11:10 | Outpatient (BNVA) | payer MEDICARE, SELFPAY | PROVIDERS: PCP Family Medicine; Visit Provider Anesthesiology Pain Medicine | DX: G89.29 Other chronic pain (principal); M79.18 Myalgia, other site; M54.12 Radiculopathy, cervical region; M47.816 Spondylosis without myelopathy or radiculopathy, lumbar region; M54.14 Radiculopathy, thoracic region; M47.814 Spondylosis without myelopathy or radiculopathy, thoracic region; M25.561 Pain in right knee; M25.562 Pain in left knee | CPT/HCPCS: 20553; 99214 ==

== ENCOUNTER → 2022-11-13 09:56 | Outpatient (BNVA) | payer MEDICARE, SELFPAY | PROVIDERS: PCP Family Medicine; Visit Provider Anesthesiology Pain Medicine | DX: G89.29 Other chronic pain (principal); M47.816 Spondylosis without myelopathy or radiculopathy, lumbar region; M54.14 Radiculopathy, thoracic region; M47.814 Spondylosis without myelopathy or radiculopathy, thoracic region; M62.830 Muscle spasm of back; M25.561 Pain in right knee; M25.562 Pain in left knee | CPT/HCPCS: 99213; 99214 ==

== ENCOUNTER 2022-11-16 13:58 | Outpatient (CLI) | payer MEDICARE, SELFPAY ==
--- NOTE | 2022-11-16 14:30 | MR_ITS ---
WS: [id number] MRI CERVICAL SPINE NONCONTRAST TECHNIQUE: Sagittal T1, T2 and STIR imaging. Axial T2, gradient, and fiesta imaging. CLINICAL INFORMATION: M54.12 - Radiculopathy, cervical region COMPARISON: None. FINDINGS: Mild cervical curve. Mild spondylitic changes. No high-grade central canal stenosis. Cord signal is n ormal. Slight anterolisthesis C3-C4 and C4 on C5. Disc bulging more prominent at C5-C6 and C6-C7. C2-C3: Normal. C3-C4: Mild disc osteophyte complex with endplate ridging. Moderate LEFT facet arthropathy. Moderate LEFT foraminal narrowing. Spinal canal is patent. C4-C5: Slight anterolisthesis. Disc osteophyte complex with endplate ridging. Mild facet arthropathy. Mild LEFT and no significant RIGHT foraminal narrowing. Small amount of edema RIGHT facet with facet effusion compatible with synovitis. C5-C6: Disc osteophyte complex with endplate ridging. Slight contact of the cervical cord. Mild centr al canal stenosis. Moderate LEFT and mild RIGHT bony foraminal narrowing. Mild to moderate facet arth ropathy. Small RIGHT facet effusion with edema compatible with synovitis. C6-C7: Disc osteophyte complex with endplate ridging. Mild LEFT and no significant RIGHT bony foramin al narrowing. Mild facet arthropathy. Spinal canal is patent. C7-T1: Tiny shallow central protrusion. No significant foraminal narrowing. Spinal canal is patent. Visualized brain stem structures: Small vessel changes in the [place]. Prevertebral soft tissues: Normal. MR/MR cervical spin wo con* [id number] IMPRESSION: 1. Straightening of the normal cervical lordosis. Slight anterolisthesis C4 on C5. Disc space narrowing worse at C5-C6 and C6-C7. 2. Mild central canal stenosis C5-C6 and C6-C7. 3. Moderate bony foraminal narrowing LEFT C3-C4. 4. Moderate LEFT C5-C6 bony foraminal narrowing. 5. Small amount of edema with small facet effusions at RIGHT C4-C5 and RIGHT C 5-C6 compatible with synovitis likely degenerative or inflammatory
== END 2022-11-16 13:59 | disposition home or self-care (01) ==
PROVIDERS: PCP Family Medicine; Visit Provider Anesthesiology Pain Medicine
DX: M54.12 Radiculopathy, cervical region (principal); M48.02 Spinal stenosis, cervical region; R60.0 Localized edema
CPT/HCPCS: 72141

== ENCOUNTER → 2022-12-06 11:04 | Outpatient (BNVA) | payer MEDICARE, SELFPAY | PROVIDERS: PCP Family Medicine; Visit Provider Anesthesiology Pain Medicine | DX: G89.29 Other chronic pain (principal); M47.816 Spondylosis without myelopathy or radiculopathy, lumbar region; M54.14 Radiculopathy, thoracic region; M47.814 Spondylosis without myelopathy or radiculopathy, thoracic region; M47.812 Spondylosis without myelopathy or radiculopathy, cervical region; M62.830 Muscle spasm of back; M25.561 Pain in right knee; M25.562 Pain in left knee | CPT/HCPCS: 99214 ==

== ENCOUNTER → 2022-12-27 13:22 | Outpatient (BNVA) | payer MEDICARE, SELFPAY | PROVIDERS: PCP Family Medicine; Visit Provider Anesthesiology Pain Medicine | DX: M47.812 Spondylosis without myelopathy or radiculopathy, cervical region (principal) | CPT/HCPCS: 64490; 64491; 64492; J3490 ==

== ENCOUNTER → 2023-01-10 12:48 | Outpatient (BNVA) | payer MEDICARE, SELFPAY | PROVIDERS: PCP Family Medicine; Visit Provider Anesthesiology Pain Medicine | DX: M47.812 Spondylosis without myelopathy or radiculopathy, cervical region (principal) | CPT/HCPCS: 64490; 64491; 64492; J3490 ==

== ENCOUNTER → 2023-01-24 10:06 | Outpatient (BNVA) | payer MEDICARE, SELFPAY | PROVIDERS: PCP Family Medicine; Visit Provider Anesthesiology Pain Medicine | DX: G89.29 Other chronic pain (principal); M47.814 Spondylosis without myelopathy or radiculopathy, thoracic region; M47.816 Spondylosis without myelopathy or radiculopathy, lumbar region; M54.14 Radiculopathy, thoracic region; M47.812 Spondylosis without myelopathy or radiculopathy, cervical region; M25.561 Pain in right knee; M25.562 Pain in left knee; M62.830 Muscle spasm of back | CPT/HCPCS: 99214 ==

== ENCOUNTER → 2023-01-30 08:56 | Outpatient (BNVA) | payer MEDICARE, SELFPAY | PROVIDERS: PCP Family Medicine; Visit Provider Anesthesiology Pain Medicine | DX: M79.18 Myalgia, other site (principal); M54.2 Cervicalgia | CPT/HCPCS: 20553; 99212 ==

== ENCOUNTER → 2023-03-04 09:29 | Outpatient (BNVA) | payer MEDICARE, SELFPAY | PROVIDERS: PCP Family Medicine; Visit Provider Family Medicine | DX: I10 Essential (primary) hypertension (principal); E78.5 Hyperlipidemia, unspecified; F33.1 Major depressive disorder, recurrent, moderate; M54.40 Lumbago with sciatica, unspecified side; G89.29 Other chronic pain; M17.0 Bilateral primary osteoarthritis of knee; I50.9 Heart failure, unspecified; G47.00 Insomnia, unspecified; K21.9 Gastro-esophageal reflux disease without esophagitis; K59.00 Constipation, unspecified; N39.41 Urge incontinence; E78.2 Mixed hyperlipidemia; M62.830 Muscle spasm of back; F51.01 Primary insomnia | CPT/HCPCS: 80053; 80061; 81000 ==

== ENCOUNTER → 2023-03-21 09:54 | Outpatient (BNVA) | payer MEDICARE, SELFPAY | PROVIDERS: PCP Family Medicine; Visit Provider Anesthesiology Pain Medicine | DX: G89.29 Other chronic pain (principal); M47.816 Spondylosis without myelopathy or radiculopathy, lumbar region; M54.14 Radiculopathy, thoracic region; M47.814 Spondylosis without myelopathy or radiculopathy, thoracic region; M47.812 Spondylosis without myelopathy or radiculopathy, cervical region; M25.561 Pain in right knee; M25.562 Pain in left knee; M62.830 Muscle spasm of back | CPT/HCPCS: 99214 ==

== ENCOUNTER → 2023-05-20 09:23 | Outpatient (BNVA) | payer MEDICARE, SELFPAY | PROVIDERS: PCP Family Medicine; Visit Provider Anesthesiology Pain Medicine | DX: M47.816 Spondylosis without myelopathy or radiculopathy, lumbar region; M54.14 Radiculopathy, thoracic region; G89.29 Other chronic pain; M47.814 Spondylosis without myelopathy or radiculopathy, thoracic region; M25.569 Pain in unspecified knee; M62.830 Muscle spasm of back; M47.812 Spondylosis without myelopathy or radiculopathy, cervical region; M25.561 Pain in right knee; M25.562 Pain in left knee | CPT/HCPCS: 99214 ==

== ENCOUNTER → 2023-07-09 13:32 | Outpatient (BNVA) | payer MEDICARE, SELFPAY | PROVIDERS: PCP Family Medicine; Visit Provider Anesthesiology Pain Medicine | DX: M47.816 Spondylosis without myelopathy or radiculopathy, lumbar region; M54.14 Radiculopathy, thoracic region; G89.29 Other chronic pain; M47.814 Spondylosis without myelopathy or radiculopathy, thoracic region; M62.830 Muscle spasm of back; M47.812 Spondylosis without myelopathy or radiculopathy, cervical region; M25.562 Pain in left knee; M25.561 Pain in right knee | CPT/HCPCS: 99214 ==

== ENCOUNTER → 2023-07-22 09:11 | Outpatient (BNVA) | payer MEDICARE, SELFPAY | PROVIDERS: PCP Family Medicine; Visit Provider Anesthesiology Pain Medicine | DX: G89.29 Other chronic pain; M79.18 Myalgia, other site; M47.816 Spondylosis without myelopathy or radiculopathy, lumbar region; M54.14 Radiculopathy, thoracic region; M47.814 Spondylosis without myelopathy or radiculopathy, thoracic region; M47.812 Spondylosis without myelopathy or radiculopathy, cervical region; M25.561 Pain in right knee | CPT/HCPCS: 20553; 99214; J1030; J3490 ==

== ENCOUNTER → 2023-09-17 09:20 | Outpatient (BNVA) | payer MEDICARE, SELFPAY | PROVIDERS: PCP Family Medicine; Visit Provider Anesthesiology Pain Medicine | DX: G89.29 Other chronic pain; M54.40 Lumbago with sciatica, unspecified side; M47.814 Spondylosis without myelopathy or radiculopathy, thoracic region; M47.816 Spondylosis without myelopathy or radiculopathy, lumbar region; M54.14 Radiculopathy, thoracic region; M47.812 Spondylosis without myelopathy or radiculopathy, cervical region; M79.18 Myalgia, other site; M25.561 Pain in right knee; M25.562 Pain in left knee | CPT/HCPCS: 99214 ==

== ENCOUNTER → 2023-10-01 10:05 | Outpatient (BNVA) | payer MEDICARE, SELFPAY | PROVIDERS: PCP Family Medicine; Visit Provider Family Medicine | DX: I10 Essential (primary) hypertension (principal); R74.8 Abnormal levels of other serum enzymes | CPT/HCPCS: 80048 ==

== ENCOUNTER → 2023-12-05 09:27 | Outpatient (BNVA) | payer MEDICARE, SELFPAY | PROVIDERS: PCP Family Medicine; Visit Provider Family Medicine | DX: I10 Essential (primary) hypertension (principal) | CPT/HCPCS: 80048 ==

== ENCOUNTER → 2024-03-02 10:10 | Outpatient (BNVA) | payer MEDICARE, SELFPAY | PROVIDERS: PCP Family Medicine; Visit Provider Family Medicine | DX: I10 Essential (primary) hypertension; R74.8 Abnormal levels of other serum enzymes; E78.2 Mixed hyperlipidemia | CPT/HCPCS: 80053; 80061 ==

== ENCOUNTER → 2024-04-10 13:37 | Outpatient (BNVA) | payer MEDICARE, SELFPAY | PROVIDERS: PCP Family Medicine; Visit Provider Emergency Medicine | DX: R10.9 Unspecified abdominal pain (principal) | CPT/HCPCS: 81000 ==

== ENCOUNTER → 2024-05-07 08:50 | Outpatient (BNVA) | payer MEDICARE, SELFPAY | PROVIDERS: PCP Family Medicine; Visit Provider Family Medicine | DX: Z12.4 Encounter for screening for malignant neoplasm of cervix (principal) | CPT/HCPCS: 87624 ==

== ENCOUNTER → 2024-09-01 09:03 | Outpatient (BNVA) | payer MEDICARE, SELFPAY | PROVIDERS: PCP Family Medicine; Visit Provider Family Medicine | DX: I10 Essential (primary) hypertension (principal) | CPT/HCPCS: 80048 ==

== ENCOUNTER → 2025-03-02 09:15 | Outpatient (BNVA) | payer MEDICARE, SELFPAY | PROVIDERS: PCP Family Medicine; Visit Provider Family Medicine | DX: I10 Essential (primary) hypertension (principal); F33.1 Major depressive disorder, recurrent, moderate; E78.2 Mixed hyperlipidemia; L60.9 Nail disorder, unspecified | CPT/HCPCS: 80053; 80061; 84443; 85025 ==

== ENCOUNTER → 2025-03-11 13:58 | Outpatient (BNVA) | payer MEDICARE, SELFPAY | PROVIDERS: PCP Family Medicine; Referring Provider Family Medicine; Visit Provider Student in an Organized Health Care Education/Training Program | DX: Z12.11 Encounter for screening for malignant neoplasm of colon (principal) | CPT/HCPCS: 99024; 99204 ==

== ENCOUNTER → 2025-03-15 11:28 | Outpatient (BNVA) | payer MEDICARE, SELFPAY | PROVIDERS: PCP Family Medicine; Referring Provider Family Medicine; Visit Provider Anesthesiology Pain Medicine | DX: M47.894 Other spondylosis, thoracic region (principal); M47.897 Other spondylosis, lumbosacral region | CPT/HCPCS: 72072; 72110; 99214 ==

== ENCOUNTER → 2025-03-17 14:39 | Outpatient (BNVA) | payer MEDICARE, SELFPAY | PROVIDERS: PCP Family Medicine; Visit Provider Anesthesiology Pain Medicine | DX: M79.18 Myalgia, other site (principal); M54.9 Dorsalgia, unspecified; G89.29 Other chronic pain; M54.2 Cervicalgia; M47.814 Spondylosis without myelopathy or radiculopathy, thoracic region; M54.6 Pain in thoracic spine; M25.569 Pain in unspecified knee; M47.816 Spondylosis without myelopathy or radiculopathy, lumbar region; M54.14 Radiculopathy, thoracic region; M47.812 Spondylosis without myelopathy or radiculopathy, cervical region; M54.40 Lumbago with sciatica, unspecified side | CPT/HCPCS: 20553; 99214; J1010; J3490 ==

== ENCOUNTER 2025-03-29 13:28 | Outpatient (CLI) | payer MEDICARE, SELFPAY ==
--- NOTE | 2025-03-29 14:30 | XR_ITS ---
WS: [id number] SCREENING DEXA SCAN [place] CLINICAL INFORMATION: Z78.0 - Asymptomatic menopausal state COMPARISON: None. FINDINGS: The L1-L4 bone mineral density measures 0.993 g/cm2. This corresponds to a T score score of -1.6 and Z score of 0.0. Left femoral neck bone mineral density measures 0.701 g/cm2. This corresponds to a T score of -2.4 and Z score of -1.2. Right femoral neck bone mineral density measures 0.687 g/cm2. This corresponds to a T score -2.5of and Z score of -1.4. Mean femoral neck bone mineral density measures 0.694 g/cm2. This corresponds to a T score of -2.5 and Z score of -1.3. XR/XR DEXA axial skeleton* [id number] IMPRESSION: Osteopenia lumbar spine. Osteoporosis femoral necks. Patient's FRAX calculated 10 year probability for major osteoporotic fracture i s 26.4% and osteoporotic hip fracture is 4.2%.
== END 2025-03-29 13:29 | disposition home or self-care (01) ==
LOC: RAD 13:29
PROVIDERS: PCP Family Medicine; Visit Provider Family Medicine
DX: Z13.820 Encounter for screening for osteoporosis (principal); Z78.0 Asymptomatic menopausal state; M85.88 Other specified disorders of bone density and structure, other site
CPT/HCPCS: 77080

== ENCOUNTER 2025-04-13 10:00 | Day surgery (SDC) | payer MEDICARE, SELFPAY ==
[2025-04-13 10:10] VITALS: BP 130/89; PULSE 85; RESP 18; TEMP 36.5; O2SAT 98; BMI 27.0
--- NOTE | 2025-04-13 10:29 | ANES.PREANE2 ---
Pre-Anesthetic Assessment Height/Weight: Height 1.5 m Weight 60.781 kg Temp Pulse Resp BP Pulse Ox O2 Del Method 97.7 F 85 18 130/89 98 Room Air 04/13/25 10:10 04/13/25 10:10 04/13/25 10:10 04/13/25 10:10 04/13/25 10:10 04/13/25 10:10 Preop Diagnosis: screen Operation Date: 04/13/25 11:00 Proposed Procedures p Colonoscopy 12746 G0121 Z12.11(Not Applicable) - Steve Saravia MD Familial anesthetic complications: none Was Clonidine taken within 24 hours: N/A Last intake: Intake Last Liquid Date 04/12/25 Last Liquid Time 00:00 Last Solid Date 04/11/25 Last Solid Time 23:00 Social No alcohol and No tobacco Exam alert, oriented x 3, clear to auscultation bilaterally and regular rate & rhythm Airway Cervical ROM: within normal limits Dentition: chipped Pulmonary None reported CV/HEM Hypertension None reported Hepatic None reported GI None reported Metabolic Hyperlipidemia Musc/skel Lower Back Pain Neuropsych None reported Anesthetic Plan ASA status: 2 Anesthesia: MAC Risk of > 500 ml blood loss (7ml/kg in children): No Medications/Allergies Home Medications ?Medication ?Instructions ?Recorded ?Confirmed ?Last Taken ?Type Unloading Right Knee Brace #1 ea 01/24/23 04/07/25 04/12/25 08:00 Rx diaper,brief,adult,disposable #90 ea 03/04/23 04/07/25 04/12/25 08:00 Rx (Depend Underwear For Women Small-Medium) amitriptyline 25 mg tablet 50 mg (2 x 25 mg) PO .at bedtime 03/02/25 04/07/25 04/12/25 08:00 Rx 90 days #180 tabs fluoxetine 20 mg capsule (Prozac) 20 mg PO DAILY 90 days #90 caps 03/02/25 04/07/25 04/12/25 08:00 Rx furosemide 20 mg tablet 20 mg PO DAILY 90 days #90 tabs 03/02/25 04/07/25 04/12/25 08:00 Rx hydroxyzine HCl 50 mg tablet 50 mg PO .at bedtime PRN insomnia 03/02/25 04/07/25 04/12/25 08:00 Rx 90 days #90 tabs lisinopril 20 1 tab PO DAILY 90 days #90 tabs 03/02/25 04/07/25 04/12/25 08:00 Rx mg-hydrochlorothiazide 25 mg tablet meloxicam 15 mg tablet 15 mg PO DAILY 90 days #90 tabs 03/02/25 04/07/25 04/12/25 08:00 Rx omeprazole 20 mg capsule,delayed 20 mg PO BID 90 days #180 caps 03/02/25 04/07/25 04/12/25 08:00 Rx release tizanidine 4 mg tablet 4 mg PO TID 30 days #90 tabs 03/02/25 04/07/25 04/12/25 08:00 Rx acetaminophen 500 mg capsule 1,000 mg PO Q6H PRN Pain 04/07/25 04/07/25 04/12/25 08:00 History alendronate 70 mg tablet 70 mg PO .WEEKLY 90 days #13 tabs 04/07/25 04/07/25 04/12/25 08:00 Rx amlodipine 10 mg tablet 10 mg PO DAILY 04/07/25 04/07/25 04/13/25 07:00 History atorvastatin 40 mg tablet 40 mg PO DAILY 04/07/25 04/07/25 04/12/25 08:00 History calcium 250 mg (as 1 tab PO DAILY 04/07/25 04/07/25 04/12/25 08:00 History carbonate)-vitamin D3 3 mcg (120 unit) tablet diclofenac sodium 1 % topical gel 4 g topical QID PRN Pain 04/07/25 04/07/25 04/12/25 08:00 History (Arthritis Pain (diclofenac)) penciclovir 1 % topical cream 1 applic topical Q2H PRN Outbreak 04/07/25 04/07/25 04/12/25 08:00 History (Denavir) potassium chloride 8 mEq 8 meq PO DAILY 04/07/25 04/07/25 04/12/25 08:00 History tablet,extended release [id number] 1 mg 1 tab PO DAILY 04/07/25 04/07/25 04/12/25 08:00 History tablet Allergies Allergy/AdvReac Type Severity Reaction Status Date / Time Sulfa (Sulfonamide Allergy hives Verified 04/13/25 10:06 Antibiotics) Current Medications Generic Name Dose Route Start Last Admin Trade Name Freq PRN Reason Stop Dose Admin Sodium Chloride 1,000 mls @ 15 mls/hr 04/13/25 10:02 04/13/25 10:14 Sodium Chloride 0.9% IV 04/14/25 10:01 15 mls/hr .Q24H PRN Administration COLONOSCOPY FLUIDS PFSH Anesthesia Medical History (Updated 04/07/25 @ 08:47 by Rachel Alonso MD) Constipation Herpes genitalis Major depression Hyperlipemia Hypertension Chronic bilateral low back pain with sciatica Surgical History H/O tubal ligation Family History Mother Chronic kidney disease (CKD) Stroke Father Stroke COPD (chronic obstructive pulmonary disease) Social History Smoking and tobacco/nicotine status: never used tobacco/nicotine Second hand smoke exposure: Yes Alcohol intake: current Alcohol intake frequency: 0-2 Drinks per Day Alcohol type: beer Substance/Drug Use: never Female Reproductive History Spontaneous abortions: No Data Anesthesia Cardiac Studies: Echocardiogram 03/01/22
--- NOTE | 2025-04-13 10:50 | W.PM.OPSFHP ---
Same Day Surgery H&P Indication for Procedure/HPI DATE OF PROCEDURE: April 13, 2025 CHIEF COMPLAINT/INDICATIONFOR SURGICAL PROCEDURE: screening colonoscopy PREOP DIAGNOSIS: screening colonoscopy PLANNED PROCEDURE: Operation Date: 04/13/25 11:00 Proposed Procedures p Colonoscopy [id number] G0121 Z12.11(Not Applicable) - Steve Saravia MD Medications/Allergies* Home Medications ?Medication ?Instructions ?Recorded ?Confirmed ?Type acetaminophen 500 mg capsule 1,000 mg PO Q6H PRN Pain 04/07/25 04/07/25 History amlodipine 10 mg tablet 10 mg PO DAILY 04/07/25 04/07/25 History atorvastatin 40 mg tablet 40 mg PO DAILY 04/07/25 04/07/25 History calcium 250 mg (as 1 tab PO DAILY 04/07/25 04/07/25 History carbonate)-vitamin D3 3 mcg (120 unit) tablet diclofenac sodium 1 % topical gel 4 g topical QID PRN Pain 04/07/25 04/07/25 History (Arthritis Pain (diclofenac)) penciclovir 1 % topical cream 1 applic topical Q2H PRN Outbreak 04/07/25 04/07/25 History (Denavir) potassium chloride 8 mEq 8 meq PO DAILY 04/07/25 04/07/25 History tablet,extended release [id number] 1 mg 1 tab PO DAILY 04/07/25 04/07/25 History tablet Allergies/Adverse Reactions Allergy/AdvReac Type Severity Reaction Status Date / Time Sulfa (Sulfonamide Allergy hives Verified 04/13/25 10:06 Antibiotics) Current Medications: Generic Name Dose Route Start Last Admin Trade Name Freq PRN Reason Stop Dose Admin Sodium Chloride 1,000 mls @ 15 mls/hr 04/13/25 10:02 04/13/25 10:14 Sodium Chloride 0.9% IV 04/14/25 10:01 15 mls/hr .Q24H PRN Administration COLONOSCOPY FLUIDS Pertinent History/Comorbid Conditions* Medical History (Updated 04/07/25 @ 08:47 by Rachel Alonso MD) Constipation Herpes genitalis Major depression Hyperlipemia Hypertension Chronic bilateral low back pain with sciatica Surgical History (Updated 02/14/21 @ 13:05 by Sal Reinoso MD) H/O tubal ligation Family History (Updated 10/19/20 @ 08:58 by Melissa Montoya LPN) Mother Chronic kidney disease (CKD) Mother COPD (chronic obstructive pulmonary disease) Father Stroke Mother Father Social History Smoking and tobacco/nicotine status: never used tobacco/nicotine Second hand smoke exposure: Yes Alcohol intake: current Alcohol intake frequency: 0-2 Drinks per Day Alcohol type: beer Substance/Drug Use: never Pertinent Exam Findings alert, oriented x 3, clear to auscultation bilaterally, regular rate & rhythm and procedure specific exam findings abdomen soft, nt, nd Recommendations Risks and benefits of procedure reviewed and Patient/family agree to proceed Surgery/Procedure today Coding Level of Care Code Acute Code for Chg Danette
[2025-04-13 11:12] VITALS: BP 107/72; PULSE 89; RESP 17; TEMP 36.2; O2SAT 96
[2025-04-13 11:20] VITALS: BP 106/69; PULSE 81; RESP 18; O2SAT 94
[2025-04-13 11:30] VITALS: BP 98/70; PULSE 74; RESP 18; O2SAT 97
[2025-04-13 11:40] VITALS: BP 116/84; PULSE 71; RESP 18; O2SAT 99
--- NOTE | 2025-04-13 12:17 | ANE.PACU2 ---
Inpatient post-anesthesia follow up: Airway intact: Yes Vital signs: Temperature 97.2 F Pulse Rate 71 Respiratory Rate 18 Blood Pressure 116/84 Pulse Oximetry 99 Oxygen Delivery Me thod Room Air Oxygen Flow Rate Fraction of Inspir ed Oxygen Hydration adequate: Yes Nausea and vomiting: No Pain level: 1 Mental status: Baseline
== END 2025-04-13 12:17 | disposition home or self-care (01) ==
PROVIDERS: PCP Family Medicine; Visit Provider Student in an Organized Health Care Education/Training Program
PROC: 0DJD8ZZ Inspection of Lower Intestinal Tract, Via Natural or Artificial Opening Endoscopic (ICD-10-PCS; CPT 45330; 2025-04-13 11:00)
DX: Z12.11 Encounter for screening for malignant neoplasm of colon (principal); E78.5 Hyperlipidemia, unspecified; I10 Essential (primary) hypertension; Z53.8 Procedure and treatment not carried out for other reasons
CPT/HCPCS: G0121; J7030

== ENCOUNTER → 2025-06-16 12:50 | Outpatient (BNVA) | payer MEDICARE, SELFPAY | PROVIDERS: PCP Family Medicine; Visit Provider Anesthesiology Pain Medicine | DX: M79.18 Myalgia, other site (principal); M47.814 Spondylosis without myelopathy or radiculopathy, thoracic region; M54.6 Pain in thoracic spine; M47.816 Spondylosis without myelopathy or radiculopathy, lumbar region; M54.14 Radiculopathy, thoracic region; M47.812 Spondylosis without myelopathy or radiculopathy, cervical region; G89.29 Other chronic pain | CPT/HCPCS: 20553; 73521; 99214; J1010; J3490 ==

== ENCOUNTER → 2025-06-22 09:49 | Outpatient (BNVA) | payer MEDICARE, SELFPAY | PROVIDERS: PCP Family Medicine; Visit Provider Family Medicine | DX: R23.3 Spontaneous ecchymoses (principal) | CPT/HCPCS: 80053; 85025 ==

== ENCOUNTER → 2025-06-25 09:10 | Outpatient (BNVA) | payer MEDICARE, SELFPAY | PROVIDERS: PCP Family Medicine; Visit Provider Family Medicine | DX: R23.3 Spontaneous ecchymoses (principal) | CPT/HCPCS: 85610 ==

== ENCOUNTER → 2025-07-19 10:40 | Outpatient (BNVA) | payer MEDICARE, SELFPAY | PROVIDERS: PCP Family Medicine; Visit Provider Nurse Practitioner | DX: M19.071 Primary osteoarthritis, right ankle and foot (principal); M81.8 Other osteoporosis without current pathological fracture; M77.31 Calcaneal spur, right foot; M20.11 Hallux valgus (acquired), right foot | CPT/HCPCS: 73630 ==

== ENCOUNTER → 2025-08-04 09:32 | Outpatient (BNVA) | payer MEDICARE, SELFPAY | PROVIDERS: PCP Family Medicine; Visit Provider Podiatrist Foot & Ankle Surgery | DX: M79.671 Pain in right foot (principal); S92.331A Displaced fracture of third metatarsal bone, right foot, initial encounter for closed fracture; X58.XXXA Exposure to other specified factors, initial encounter | CPT/HCPCS: 73630 ==

== ENCOUNTER 2025-08-04 11:27 | Outpatient (CLI) | payer MEDICARE, SELFPAY | END 2025-08-04 11:28 | disposition home or self-care (01) | LOC: SPT 11:27 | PROVIDERS: PCP Family Medicine; Visit Provider Podiatrist Foot & Ankle Surgery | DX: Z46.89 Encounter for fitting and adjustment of other specified devices (principal); S92.331D Displaced fracture of third metatarsal bone, right foot, subsequent encounter for fracture with routine healing; X58.XXXD Exposure to other specified factors, subsequent encounter | CPT/HCPCS: L4361 ==

== ENCOUNTER → 2025-08-18 14:11 | Outpatient (BNVA) | payer MEDICARE, SELFPAY | PROVIDERS: PCP Family Medicine; Visit Provider Podiatrist Foot & Ankle Surgery | DX: S92.331A Displaced fracture of third metatarsal bone, right foot, initial encounter for closed fracture (principal); X58.XXXA Exposure to other specified factors, initial encounter; M79.671 Pain in right foot | CPT/HCPCS: 73630; 99213 ==

== ENCOUNTER → 2025-09-14 09:05 | Outpatient (BNVA) | payer MEDICARE, SELFPAY | PROVIDERS: PCP Family Medicine; Visit Provider Podiatrist Foot & Ankle Surgery | DX: S92.331A Displaced fracture of third metatarsal bone, right foot, initial encounter for closed fracture (principal); X58.XXXA Exposure to other specified factors, initial encounter | CPT/HCPCS: 73630; 99213 ==

== ENCOUNTER → 2025-09-15 10:54 | Outpatient (BNVA) | payer MEDICARE, SELFPAY | PROVIDERS: PCP Family Medicine; Visit Provider Anesthesiology Pain Medicine | DX: M79.18 Myalgia, other site (principal); M54.2 Cervicalgia; G89.29 Other chronic pain; M47.816 Spondylosis without myelopathy or radiculopathy, lumbar region; M47.814 Spondylosis without myelopathy or radiculopathy, thoracic region; M54.6 Pain in thoracic spine; M25.569 Pain in unspecified knee; M54.14 Radiculopathy, thoracic region; M47.812 Spondylosis without myelopathy or radiculopathy, cervical region; M16.12 Unilateral primary osteoarthritis, left hip | CPT/HCPCS: 20553; 99214 ==

== ENCOUNTER 2025-09-28 14:07 | Outpatient (CLI) | payer MEDICARE, SELFPAY ==
--- NOTE | 2025-09-28 14:16 | XR_ITS ---
WS: [id number] Right knee, 3 views, 09/28/2025 Clinical Data: RIGHT KNEE PAIN Comparison: Both knees, 01/03/2021 Findings: There is medial joint compartment narrowing with spurring of the medial tibial plateau and medial femoral condyle. The posterior patella shows spurring and slight irregularity. No fractures or dislocations are seen. The soft tissues are normal. XR/XR knee RT 3V* [id number] Impression: Osteoarthritis of the right knee with medial joint compartment narrowing and ir regularity of the posterior patella.
== END 2025-09-28 14:08 | disposition home or self-care (01) ==
PROVIDERS: PCP Family Medicine; Visit Provider Student in an Organized Health Care Education/Training Program
DX: M17.11 Unilateral primary osteoarthritis, right knee (principal)
CPT/HCPCS: 73562